=== PATIENT | female | born 1950 ===

== ENCOUNTER 2017-12-15 10:37 | Outpatient (CLI) | payer OTHER ==
[~2017-12-15] VITALS: Ht 152.4 cm; Wt 50.8 kg
== END 2017-12-15 11:00 | disposition home or self-care (01) ==
LOC: OFIC 805 10:37
DX: R04.0 Epistaxis (principal); J32.8 Other chronic sinusitis

== ENCOUNTER 2021-02-03 08:42 | Emergency (ER) | payer OTHER ==
[~2021-02-03] VITALS: Ht 121.9 cm; Wt 47.6 kg
== END 2021-02-03 12:37 | disposition home or self-care (01) ==
LOC: ER 08:42
DX: R30.0 Dysuria (principal)

== ENCOUNTER 2021-05-17 06:33 | Day surgery (SDC) | payer OTHER | END 2021-05-17 10:45 | disposition home or self-care (01) | LOC: AMB-ENDOS 06:33 | PROVIDERS: ATTEND Colon & Rectal Surgery | DX: K59.04 Chronic idiopathic constipation (principal); K64.1 Second degree hemorrhoids; Z20.822 Contact with and (suspected) exposure to COVID-19 ==